=== PATIENT | male | born 1995 | race African-American/Black ===

== ENCOUNTER 2020-12-08 21:50 | Emergency (ER) | payer OTHER ==
[~2020-12-08] VITALS: Ht 177.8 cm; Wt 90.7 kg
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
[2020-12-08] MEDS ORDERED: HYDROCODONE/APAP 5/325MG TABLET PO ONE (23:00)
[2020-12-08] MEDS ORDERED: HYDROCODONE/APAP 5/325MG TABLET ONE (23:08)
--- NOTE | 2020-12-08 23:27 | NUR ---
PT GOING TO CT.
[2020-12-09] MEDS ORDERED: IBUP-1957 PO (00:02)
[2020-12-09] MEDS ORDERED: HYDR-3972 PO (00:02)
[2020-12-09] MEDS ORDERED: CYCL15CA23 PO (00:02)
--- NOTE | 2020-12-09 00:34 | NUR ---
Patient discharged to home in stable condition. Written and verbal after care instructions given. Patient verbalizes understanding of instruction.
--- NOTE | 2020-12-09 00:34 | NUR ---
(pt. name) ambulatory with a steady gait
[2020-12-09 00:37] VITALS: BP 120/60
== END 2020-12-09 00:38 | disposition home or self-care (01) ==
LOC: ER 21:58
DX: S13.8XXA Sprain of joints and ligaments of other parts of neck, initial encounter (principal); S33.5XXA Sprain of ligaments of lumbar spine, initial encounter; S60.221A Contusion of right hand, initial encounter; S09.8XXA Other specified injuries of head, initial encounter; R51.9 Headache, unspecified; Z79.899 Other long term (current) drug therapy; V49.49XA Driver injured in collision with other motor vehicles in traffic accident, initial encounter; Y93.89 Activity, other specified; Y92.488 Other paved roadways as the place of occurrence of the external cause; Y99.8 Other external cause status
CPT/HCPCS: 70450-TC; 72100-TC; 72125-TC; 73030-TC; 73130-TC